=== PATIENT | male | born 1995 | race Caucasian/White ===

== ENCOUNTER 2016-08-28 15:18 | Observation (INO) | payer OTHER ==
[~2016-08-28] VITALS: Ht 172.7 cm; Wt 71.0 kg
[2016-08-28 15:30] VITALS: BP 119/75; PULSE 112; RESP 20; TEMP 98.1; O2SAT 97
[2016-08-28 15:51] VITALS: BP 119/75; PULSE 117; RESP 20; TEMP 98.3; O2SAT 98
--- NOTE | 2016-08-28 15:54 | PD ---
HPI Chief Complaint: Seizure Time Seen by Provider: 15:45 Travel History International Travel<30 days: No Contact w/Intl Traveler<30days: No History of Present Illness HPI 21yo M with no significant PMH presents to the ED with c/o episode of seizure today. [place] and had a witnessed seizure that lasted 3 minutes. As per minute, he remembers working and picking trash and then woke up in the ambulance. Denies any complaints. Denies any fever, headache, visual changes, chest pain, sob, n/v, abdominal pain, focal weakness or numbness. No signs of trauma on patient. States he had an episode of seizure 6 months ago and was seen at [facility]. States he was discharge and was suppose to follow up with PMD and never did. Denies any family history of brain tumors or aneurysms. Denies any drug or alcohol use. Blood glucose 133 per EVAC. PFSH Social History Tobacco Use: No Allergies-Medications (Allergen,Severity, Reaction): Coded Allergies: No Known Allergies (Unverified , 08/28/16) Review of Systems Except as stated in HPI: all other systems reviewed are Neg Physical Exam Narrative GENERAL: 21yo M not in distress. SKIN: Focused skin assessment warm/dry. HEAD: Atraumatic. Normocephalic. EYES: Pupils equal and round at 4mm bilaterally. No scleral icterus. No injection or drainage. ENT: No nasal bleeding or discharge. Mucous membranes pink and moist. NECK: Trachea midline. No JVD. CARDIOVASCULAR: Regular rate and rhythm. No murmur appreciated. RESPIRATORY: No accessory muscle use. Clear to auscultation. Breath sounds equal bilaterally. GASTROINTESTINAL: Abdomen soft, non-tender, nondistended. No rebound tenderness or guarding. MUSCULOSKELETAL: No obvious deformities. No clubbing. No cyanosis. No edema. NEUROLOGICAL: Awake and alert. No obvious cranial nerve deficits. Motor grossly within normal limits. Normal speech. PSYCHIATRIC: Appropriate mood and affect; insight and judgment normal. Data Data Last Documented VS Vital Signs Date Time Temp Pulse Resp B/P Pulse Ox O2 Delivery O2 Flow Rate FiO2 08/28/16 15:51 98.3 117 20 119/75 98 Room Air Orders Complete Blood Count With Diff (08/28/16 15:45) Basic Metabolic Panel (Bmp) (08/28/16 15:45) Alcohol (Ethanol) (08/28/16 15:45) Drug Screen, Random Urine (08/28/16 15:45) Electrocardiogram (08/28/16 ) Ct Brain W/O Iv Contrast(Rout) (08/28/16 ) Blood Glucose (08/28/16 15:45) Ecg Monitoring (08/28/16 15:45) Iv Access Insert/Monitor (08/28/16 15:45) Oximetry (08/28/16 15:45) Sodium Chlor 0.9% 1000 Ml Inj (Ns 1000 M (08/28/16 16:00) Potassium Chloride (Kcl) (08/28/16 17:15) Admit Order (Ed Use Only) (08/28/16 17:34) Labs Laboratory Tests Test 08/28/16 08/28/16 16:01 16:40 White Blood Count 8.4 TH/MM3 Red Blood Count 4.65 MIL/MM3 Hemoglobin 13.8 GM/DL Hematocrit 39.8 % Mean Corpuscular Volume 85.6 FL Mean Corpuscular Hemoglobin 29.7 PG Mean Corpuscular Hemoglobin 34.7 % Concent Red Cell Distribution Width 12.5 % Platelet Count 185 TH/MM3 Mean Platelet Volume 7.9 FL Neutrophils (%) (Auto) 68.2 % Lymphocytes (%) (Auto) 21.7 % Monocytes (%) (Auto) 9.4 % Eosinophils (%) (Auto) 0.1 % Basophils (%) (Auto) 0.6 % Neutrophils # (Auto) 5.7 TH/MM3 Lymphocytes # (Auto) 1.8 TH/MM3 Monocytes # (Auto) 0.8 TH/MM3 Eosinophils # (Auto) 0.0 TH/MM3 Basophils # (Auto) 0.0 TH/MM3 CBC Comment DIFF FINAL Differential Comment Sodium Level 141 MEQ/L Potassium Level 3.2 MEQ/L Chloride Level 105 MEQ/L Carbon Dioxide Level 26.0 MEQ/L Anion Gap 10 MEQ/L Blood Urea Nitrogen 13 MG/DL Creatinine 0.94 MG/DL Estimat Glomerular Filtration 100 ML/MIN Rate Random Glucose 96 MG/DL Calcium Level 8.6 MG/DL Ethyl Alcohol Level LESS THAN 3 MG/DL Urine Opiates Screen POS Urine Barbiturates Screen NEG Urine Amphetamines Screen NEG Urine Benzodiazepines Screen POS Urine Cocaine Screen NEG Urine Cannabinoids Screen POS MDM Medical Decision Making Medical Screen Exam Complete: Yes Emergency Medical Condition: Yes Interpretation(s) EKG: NSR 90bpm. Normal axis. LVH. TWI V3. Differential Diagnosis New onset seizure vs. drug use vs. electrolyte abnormality Narrative Course 21yo M with new onset seizure. Pt had one episode of seizure 6 months ago but did not follow up and did not have EEG done. Labs reviewed, no leukocytosis. K: 3.2. Will replace orally. CT brain negative. Pt denies any drugs but urine drug screen was positive for opiates, benzodiazepines and cannabinoids. Will admit pt for new onset seizure. Discussed with Dr. Parmar. Diagnosis Primary Impression: New onset seizure Admitting Information Admitting Physician Requests: Pauly Szymanski DO Aug 28, 2016 15:54
[2016-08-28] MEDS ORDERED: SODIUM CHLOR 0.9% 1000 ML INJ 1,000 ML IV ONE (16:00)
[2016-08-28 16:15] LABS: AUTOMATED NEUTROPHIL # 5.7 TH/MM3 (1.8-7.7); BASOPHIL % 0.6 % (0.0-2.0); EOSINOPHIL % 0.1 % (0.0-4.0); HEMATOCRIT 39.8 % (39.0-51.0); HEMO FLAGS DIFF FINAL; LYMPH % 21.7 % (9.0-44.0); LYMPHOCYTE # 1.8 TH/MM3 (1.0-4.8); MEAN CELL VOLUME 85.6 FL (80.0-100.0); MEAN CORPUSCULAR HEMOGLOBIN 29.7 PG (27.0-34.0); MEAN CORPUSCULAR HGB CONC 34.7 % (32.0-36.0); MONO % 9.4 % (0.0-8.0); NEUT % 68.2 % (16.0-70.0); PLATELET COUNT 185 TH/MM3 (150-450); RED BLOOD COUNT 4.65 MIL/MM3 (4.50-5.90); RED CELL DISTRIBUTION WIDTH 12.5 % (11.6-17.2); WHITE BLOOD COUNT 8.4 TH/MM3 (4.0-11.0)
[2016-08-28 16:37] LABS: ANION GAP 10 MEQ/L (5-15); BLOOD UREA NITROGEN 13 MG/DL (7-18); CHLORIDE 105 MEQ/L (98-107); GLOMERULAR FILTRATION RATE 100 ML/MIN (>89); POTASSIUM 3.2 MEQ/L (3.5-5.1); SODIUM (NA) 141 MEQ/L (136-145)
--- NOTE | 2016-08-28 17:02 | RADRPT ---
EXAM DATE/TIME: 08/28/2016 16:42 [facility] COMPARISON: No previous studies available for comparison. INDICATIONS : Seizure today. RADIATION DOSE: 56.77 CTDIvol (mGy) MEDICAL HISTORY : Had a seizure four month ago SURGICAL HISTORY : None. ENCOUNTER: Initial ACUITY: 1 day PAIN SCALE: 0/10 LOCATION: cranial TECHNIQUE: Multiple contiguous axial images were obtained of the head. Using automated exposure control and adj ustment of the mA and/or kV according to patient size, radiation dose was kept as low as reasonably a chievable to obtain optimal diagnostic quality images. FINDINGS: CEREBRUM: The ventricles are normal for age. No evidence of midline shift, mass lesion, hemorrhage or acute in farction. No extra-axial fluid collections are seen. POSTERIOR FOSSA: The cerebellum and brainstem are intact. The 4th ventricle is midline. The cerebellopontine angle i s unremarkable. EXTRACRANIAL: The visualized portion of the orbits is intact. SKULL: The calvaria is intact. No evidence of skull fracture. CONCLUSION: 1. Negative examination. Km Dunbar MD on August 28, 2016 at 17:00 Board Certified Radiologist. This report was verified electronically.
[2016-08-28] MEDS ORDERED: POTASSIUM CHLORIDE 20 MEQ CONTROLLED RELEASE TAB PO ONE (17:15)
[2016-08-28 17:25] LABS: AMPHETAMINE, URINE NEG (NEG); BARBITURATES, URINE NEG (NEG); COCAINE, URINE NEG (NEG)
[2016-08-28] MEDS ORDERED: LORazepam 2 MG/ML VIAL IV PUSH PRN (18:45)
[2016-08-28] MEDS ORDERED: SODIUM CHLORIDE 0.9% FLUSH 10 ML FLUSH IV FLUSH PRN (18:45)
[2016-08-28] MEDS ORDERED: ONDANSETRON HCL 4 MG/2 ML VIAL IVP PRN (18:45)
[2016-08-28] MEDS ORDERED: NALOXONE HCL 0.4 MG/ML AMP IV PRN (18:45)
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
[2016-08-28 19:04] VITALS: O2SAT 100
[2016-08-28 19:05] VITALS: BP 124/70; PULSE 78; RESP 18; O2SAT 100
[2016-08-28 19:18] VITALS: BP 120/60
[2016-08-28 19:57] VITALS: BP 110/55; PULSE 82; RESP 20; TEMP 98.2; O2SAT 97
[2016-08-28] MEDS ORDERED: SODIUM CHLORIDE 0.9% FLUSH 10 ML FLUSH IV FLUSH SCH (21:00)
[2016-08-29 00:16] VITALS: BP 112/66; PULSE 86; RESP 20; TEMP 97.9; O2SAT 95
[2016-08-29 04:01] VITALS: BP 100/56; PULSE 92; RESP 20; TEMP 97.8; O2SAT 96
[2016-08-29 08:19] VITALS: BP 119/67; PULSE 75; RESP 16; TEMP 97.8; O2SAT 97
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
--- NOTE | 2016-08-29 09:50 | HHI.PR ---
Subjective Remarks Pt doing well. No sz activity overnight. No CP/SOB/N/V saw neurologist this morning. Objective Vitals Vital Signs Date Time Temp Pulse Resp B/P Pulse Ox O2 Delivery O2 Flow Rate FiO2 08/29/16 08:19 97.8 75 16 119/67 97 08/29/16 04:01 97.8 92 20 100/56 96 08/29/16 00:16 97.9 86 20 112/66 95 08/28/16 19:57 98.2 82 20 110/55 97 08/28/16 19:18 78 18 120/60 99 08/28/16 19:05 78 18 124/70 100 Room Air 08/28/16 19:04 100 Room Air 08/28/16 15:51 98.3 117 20 119/75 98 Room Air 08/28/16 15:30 98.1 112 20 119/75 97 Result Diagram: 08/28/16 1601 08/28/16 1601 Imaging Last Impressions Head CT 08/28/16 0000 Signed Impressions: Service Date/Time: Sunday, August 28, 2016 16:42 - CONCLUSION: 1. Negative examination. Km Dunbar MD Objective Remarks GENERAL: This is a well-nourished, well-developed patient, in no apparent distress. CARDIOVASCULAR: Regular rate and rhythm without murmurs. RESPIRATORY: Clear to auscultation. Breath sounds equal bilaterally. No wheezes. GASTROINTESTINAL: Abdomen soft, non-tender, nondistended. No palpable masses. No guarding. MUSCULOSKELETAL: Extremities without edema. NEUROLOGICAL: Awake and alert. Cranial nerves II through XII intact. Normal speech. A/P Assessment and Plan Seizure: Witnessed by a coworker at the beach. He has never seen a neurologist in the past. Neurology evaluated the pt and ordered MRI brain and C-Spine. UDS is positive for marijuana, opiates and benzos. Patient denies taking any benzos but did admit to me that he took one of his friend's pain medication. Seizure and fall precautions in place. Ativan when necessary for seizures. I did explain to patient that with seizures he should avoid swimming in the pool or the sea, avoid climbing ladders, bath. EEG ordered. Chronic back pain: physical therapy to assess patient. MRI c-spine per neuro. Avoid narcotics and pt has been counseled on avoiding drugs. DVT prophylaxis: SCD/TARA Discharge Planning EEG and MRI brain and C/spine to be done. Johanna Parmar MD Aug 29, 2016 09:50
[2016-08-29] MEDS ORDERED: POTASSIUM CHLORIDE 20 MEQ CONTROLLED RELEASE TAB PO ONE (10:00)
--- NOTE | 2016-08-29 10:30 | EKG ---
Date Performed: 08/28/2016 Time Performed: 16:34:10 PTAGE: 21 years EKG: Sinus rhythm NORMAL ECG NO PREVIOUS TRACING DOCTOR: Mariama Leyva Interpretating Date/Time 08/29/2016 10:26:01
--- NOTE | 2016-08-29 13:29 | RADRPT ---
EXAM DATE/TIME: 08/29/2016 12:43 [facility] COMPARISON: No previous studies available for comparison. INDICATIONS : Seizures. MEDICAL HISTORY : None. SURGICAL HISTORY : None. ENCOUNTER: Subsequent ACUITY: 2 day PAIN SCORE: 0/10 LOCATION: Head. TECHNIQUE: Multiplanar, multisequence MRI of the brain was performed without contrast. FINDINGS: CEREBRUM: The ventricles are normal for age. No evidence of midline shift, mass lesion, hemorrhage or acute in farction. No extraaxial fluid collections are seen. The pituitary gland and suprasellar cistern are normal in configuration. WHITE MATTER: No significant signal abnormalities are seen in the white matter. POSTERIOR FOSSA: The cerebellum and brainstem are intact. The 4th ventricle is midline. The cerebellopontine angle is unremarkable. The cerebellar tonsils are normal in position. DIFFUSION IMAGING: No focal areas of restricted diffusion are seen. No evidence of acute infarction. EXTRACRANIAL: The visualized portions of the orbits and paranasal sinuses are unremarkable. CONCLUSION: Normal examination. Fan Rivera MD on August 29, 2016 at 13:22 Board Certified Radiologist. This report was verified electronically.
--- NOTE | 2016-08-29 14:01 | RADRPT ---
EXAM DATE/TIME: 08/29/2016 12:43 [facility] COMPARISON: No previous studies available for comparison. INDICATIONS : Mulitple sclerosis. MEDICAL HISTORY : None. SURGICAL HISTORY : None. ENCOUNTER: Subsequent ACUITY: 2 day PAIN SCORE: 0/10 LOCATION: neck. TECHNIQUE: Multiplanar, multisequence MRI examination of the cervical spine was performed. FINDINGS: VERTEBRAE: Normal vertebral body height. Homogeneous marrow signal. ALIGNMENT: No evidence of subluxation. CORD: Normal configuration and signal. POST FOSSA: The cerebellar tonsils are normal in position. C2-C3: The thecal sac has a normal configuration. There is no evidence of disc herniation or spinal canal s tenosis. The neural foramina are patent bilaterally. C3-C4: The thecal sac has a normal configuration. There is no evidence of disc herniation or spinal canal s tenosis. The neural foramina are patent bilaterally. C4-C5: The thecal sac has a normal configuration. There is no evidence of disc herniation or spinal canal s tenosis. The neural foramina are patent bilaterally. C5-C6: The thecal sac has a normal configuration. There is no evidence of disc herniation or spinal canal s tenosis. The neural foramina are patent bilaterally. C6-C7: The thecal sac has a normal configuration. There is no evidence of disc herniation or spinal canal s tenosis. The neural foramina are patent bilaterally. C7-T1: The thecal sac has a normal configuration. There is no evidence of disc herniation or spinal canal s tenosis. The neural foramina are patent bilaterally. CONCLUSION: Normal examination. Fan Rivera MD on August 29, 2016 at 13:58 Board Certified Radiologist. This report was verified electronically.
--- NOTE | 2016-08-29 14:42 | MG ---
cc: NICOLASA HUMPHREY M.D., ROSANNE R. MD Lab No: [id number] Date: 08/29/2016 Age: 21 Sex: M Hyperventilation and photic stimulation with excellent hyperventilatory effort. EEG is awake, drowsy, asleep. CT reported as negative. This is a 21-year-old male with a history of seizures lasting about three minutes. Blood glucose per EMS was 133. Current use of caffeine and tobacco. Current medicines are listed, potassium only. DESCRIPTION OF RECORD The patient has overall alpha rhythm of 9 to 9.5 Hz, 20-40 microvolts, fairly well-organized symmetrical background. EKG looks sinus. Photic stimulation did elicit a posterior driving response. There is a spike wave at epoch 25 after photic 23 Hz was given it is bilateral. Hyperventilation then is started with some muscle artifact but overall symmetrical background. Again he develops a spike and wave discharge bihemispheric, not continuous, however, and then again at epoch 59. Some sharps are seen also at epoch 67. Somewhat more defined over the right compared to the left but is most definitely bihemispheric. IMPRESSION Abnormal EEG due to sharp waves as well as spike and wave discharges consistent with epileptic focus in this patient. Clinical correlation with antiepileptic therapy should be initiated if not already done so. Nicolasa Humphrey MD DF/DEIRDRE /1:52 PM /2:37 PM
== END 2016-08-29 14:33 | disposition left against medical advice (07) ==
LOC: NEPE 15:18 → NEDA 17:35 → NEPGCP 19:32 → NEDA 08-29 02:05
PROVIDERS: ADMIT Hospitalist; ATTEND Hospitalist
DX: R56.9 Unspecified convulsions (principal); G89.29 Other chronic pain; M54.9 Dorsalgia, unspecified; F12.90 Cannabis use, unspecified, uncomplicated
CPT/HCPCS: 70450; 70551; 72141; 80048; 80307; 85025; 93005; 95819; 96360; 97161; 99285; G0378; G8987; G8988; J7030